=== PATIENT | female | born 1955 | race Caucasian/White ===

== ENCOUNTER 2016-10-18 13:02 | Emergency (ER) | payer MEDICAID ==
[~2016-10-18] VITALS: Ht 180.3 cm; Wt 88.0 kg
[~2016-10-18 13:02] MED LIST: AMIT25TA9 PO; ASPI81TA2 PO; CALC-20 PO; CHOL10002 PO; FLUT1DIS3 IH; GLUC500T12 PO; HYDR25TA4 PO; LATA2.5D2 EACHEYE; TIOT18CA3 IH
[2016-10-18 13:06] VITALS: BP 131/85
== END 2016-10-18 14:04 | disposition home or self-care (01) ==
LOC: ER 13:06
DX: J44.9 Chronic obstructive pulmonary disease, unspecified (principal); R05 Cough; I10 Essential (primary) hypertension; Z79.82 Long term (current) use of aspirin; Z99.81 Dependence on supplemental oxygen; Z87.891 Personal history of nicotine dependence
CPT/HCPCS: 71010; 99283; A4606; Z7610

== ENCOUNTER 2017-01-20 13:02 | Emergency (ER) | payer MEDICAID ==
[~2017-01-20] VITALS: Ht 180.3 cm; Wt 84.4 kg
--- NOTE | 2017-01-20 13:20 | NUR ---
PT BIB SELF SENT BY PMD FOR INCREASING SOB X2 MONTHS AND ELEVATED D-DIMER. PT REPORTS THAT SOB HAD DECREASED RIGHT NOW S/P A COURSE OF PREDNISONE. ON 2LPM VIA NC O2 AT BASELINE. NAD NOTED. RESP EVEN UNLABORED ON O2. SKIN WARM NONDIAPHORETIC. DENIES PAIN. IN ER BED 09.
[2017-01-20] MEDS ORDERED: IBUP-1955 PO (14:21)
[2017-01-20] MEDS ORDERED: LEVO88CA2 PO (14:21)
[2017-01-20] MEDS ORDERED: AMLO10TA2 PO (14:21)
[2017-01-20] MEDS ORDERED: CETI-233 PO (14:21)
[2017-01-20] MEDS ORDERED: ALBU8.5H2 IH (14:21)
[2017-01-20 15:20] LABS: BASOPHILS # (AUTO) 0.1 /CMM (0.0-0.2); BASOPHILS % (AUTO) 0.7 % (0.0-2.0); EOSINOPHILS # (AUTO) 0.4 /CMM (0.0-0.7); EOSINOPHILS % (AUTO) 3.7 % (0.0-6.0); HEMATOCRIT 40 % (33-45); HEMOGLOBIN 13.5 g/dL (11.5-14.8); LYMPHOCYTES # (AUTO) 3.2 /CMM (0.8-4.8); LYMPHOCYTES % (AUTO) 29.4 % (20.0-44.0); MEAN CORPUSCULAR HEMOGLOBIN 29 PG (26.0-33.0); MEAN CORPUSCULAR HGB CONC 34 g/dl (31.0-36.0); MEAN CORPUSCULAR VOLUME 86 fL (82-100); MONOCYTES # (AUTO) 0.7 /CMM (0.1-1.30); MONOCYTES % (AUTO) 6.3 % (2.0-12.0); NEUTROPHILS # (AUTO) 6.5 /CMM (1.8-8.9); NEUTROPHILS % (AUTO) 59.9 % (43.0-81.0); PLATELET COUNT (AUTO) 345 /CMM (150-450); RDW COEFFICIENT OF VARIATION 12.3 (11.5-15.0); RED BLOOD CELL COUNT(AUTO) 4.65 MIL/uL (4.0-5.2); WHITE BLOOD COUNT (AUTO) 10.9 K/uL (4.3-11.0)
[2017-01-20 15:33] LABS: CALCIUM, SERUM 9.5 mg/dL (8.5-10.1); CREATININE 0.7 mg/dL (0.6-1.3); POTASSIUM 2.9 mmol/L (3.5-5.1)
[2017-01-20 15:36] LABS: INR 1.06 (0.87-1.13)
[2017-01-20] MEDS ORDERED: CT SWABBABLE VALVE TRANS SET 1 EA INFUS.SET MC ONE (15:43)
[2017-01-20] MEDS ORDERED: IOHEXOL-350 100 ML VIAL IV ONE (15:43)
[2017-01-20] MEDS ORDERED: IV NS 0.9% 250 ML IV ONE (15:43)
--- NOTE | 2017-01-20 15:49 | NUR ---
RESTING QUIETLY, NAD NOTED. VSS. ALL NEEDS ATTENDED TO.
[2017-01-20] MEDS ORDERED: POTASSIUM CHLORIDE 20 MEQ TAB.PRT.SR PO ONE ×3 (16:00)
--- NOTE | 2017-01-20 16:08 | NUR ---
PT RETURNED FROM CT AT THIS TIME, NAD NOTED.
--- NOTE | 2017-01-20 17:34 | NUR ---
Patient discharged to home in stable condition. Written and verbal after care instructions given. Patient verbalizes understanding of instruction. IV removed. Catheter intact and site benign. Pressure and 4x4 applied to site. No bleeding noted. AMBUALTORY WITH STEADY GAIT. VSS. AT BASELINE RESPIRATORY STATUS.
[2017-01-20 17:35] VITALS: BP 128/83
== END 2017-01-20 17:37 | disposition home or self-care (01) ==
LOC: ER 13:05
DX: J44.9 Chronic obstructive pulmonary disease, unspecified (principal); E87.6 Hypokalemia; E86.0 Dehydration; I10 Essential (primary) hypertension; R79.89 Other specified abnormal findings of blood chemistry; Z79.82 Long term (current) use of aspirin; F17.200 Nicotine dependence, unspecified, uncomplicated
CPT/HCPCS: 36415; 71010-TC; 80048-TC; 85025-TC; 85730-TC; A4606; J7050; Q9967; Z7610